=== PATIENT | female | born 1975 | race Caucasian/White ===

== ENCOUNTER → 2017-05-06 13:35 | Outpatient (CLI) | payer OTHER, SELFPAY ==
--- NOTE | 2017-05-06 13:43 | XR_ITS ---
EXAM: XR lumbar spine min 4V HISTORY: Low back pain ITS.REASON: LBP ORDERING PHYSICIAN: Marina Broderick PATIENT AGE: 41 years COMPARISON: None FINDINGS: Minimal lower lumbar curvature convex left. No fracture or dislocation. No lytic or blastic change. Degenerative disc disease is present at L4-L5. There is normal alignment. IMPRESSION: Degenerative disc disease L4-L5 with mild lower lumbar scoliosis convex left
== END ==
PROVIDERS: PCP Family Medicine; Visit Provider Nurse Practitioner Family
DX: M54.5 Low back pain (principal)
CPT/HCPCS: 72110

== ENCOUNTER → 2017-08-30 11:44 | Outpatient (POV) | payer OTHER, SELFPAY | PROVIDERS: Visit Provider Nurse Practitioner Acute Care | DX: Z00.00 Encounter for general adult medical examination without abnormal findings (principal) ==

== ENCOUNTER → 2018-03-07 09:47 | Outpatient (POV) | payer SELFPAY | PROVIDERS: Visit Provider Nurse Practitioner Acute Care | DX: Z00.00 Encounter for general adult medical examination without abnormal findings (principal) ==

== ENCOUNTER → 2018-06-06 08:56 | Outpatient (POV) | payer OTHER, SELFPAY | PROVIDERS: Visit Provider Nurse Practitioner Acute Care | DX: Z00.00 Encounter for general adult medical examination without abnormal findings (principal) ==

== ENCOUNTER → 2019-01-02 08:23 | Outpatient (POV) | payer OTHER, SELFPAY | PROVIDERS: PCP Family Medicine; Visit Provider Nurse Practitioner Family | DX: Z00.00 Encounter for general adult medical examination without abnormal findings (principal) ==

== ENCOUNTER → 2020-05-17 09:05 | Outpatient (CLI) | payer OTHER, SELFPAY ==
--- NOTE | 2020-05-17 09:11 | XR_ITS ---
PROCEDURE: XR KNEE LT 4V CLINICAL INDICATION: LT knee pain Medial knee. COMPARISON: No exams were available for comparison FINDINGS: There is mild lateral patellar subluxation. No acute fracture or dislocation. Small suprapatellar effusion is noted. The joint spaces are well-preserved. No significant degenerative/arthritic changes. No erosive changes evident. Other findings:None. IMPRESSION: Mild lateral patellar subluxation. This could be seen with medial patellofemoral ligament injury especially with history of dislocation. MRI may confirm if clinically desired. Dictated by: Rolo Weaver MD 05/17/2020 11:39 Rolo Weaver MD in [place] 05/17/2020 11:39
== END ==
PROVIDERS: PCP Family Medicine; Visit Provider Orthopaedic Surgery
DX: M25.562 Pain in left knee (principal)
CPT/HCPCS: 73564

== ENCOUNTER 2021-02-14 21:22 | Emergency (ER) | payer OTHER, SELFPAY ==
[2021-02-14 21:22] VITALS: BP 139/88; PULSE 78; RESP 17; TEMP 36.6; O2SAT 100; BMI 22.2
--- NOTE | 2021-02-14 21:27 | XR_ITS ---
PROCEDURE INFORMATION: Exam: XR Chest Exam date and time: 02/14/2021 9:27 PM Age: 45 years old Clinical indication: Pain; Chest pressure; Additional info: Chest pain TECHNIQUE: Imaging protocol: XR of the chest. Views: 1 view. COMPARISON: No relevant prior studies available. FINDINGS: Lungs: No consolidation. Pleural spaces: No significant pleural effusion. No pneumothorax. Heart/Mediastinum: No cardiomegaly. Bones/joints: No displaced fracture. Soft tissues: Unremarkable. IMPRESSION: No definite acute cardiopulmonary disease.
--- NOTE | 2021-02-14 21:27 | ECG_ITS ---
APPROVED REPORT Exam: Resting ECG HR:75 bpm ECG Measurements Heart Rate 75 AXES ME 152 P 83 QRSd 76 QRS 64 QT 380 T 77 QTc 424 Conclusion Normal sinus rhythm Possible Left atrial enlargement Borderline ECG Electronically signed by : Zeferino Manning MD 02/15/2021 09:10:53
[2021-02-14 21:32] LABS: Basophils # 0.1 K/mm3 (0-0.2); Basophils % 0.7 % (0.1-2.0); Eosinophils # 0.1 K/mm3 (0.0-0.4); Eosinophils % 0.9 % (0.1-12.0); Hematocrit 46.5 % (37.0-47.0); Lymphocytes # 2.8 K/mm3 (0.7-4.5); Lymphocytes % 21.9 % (10-50); Mean Corpuscular HGB Conc 32.3 g/dL (31.8-35.4); Mean Corpuscular Hemoglobin 30.3 pg (27.0-31.2); Mean Corpuscular Volume 93.8 fl (81-99); Monocytes # 0.5 K/mm3 (0.1-1.0); Neutrophils # 9.4 K/mm3 (1.8-7.8); Neutrophils % 72.4 % (37.0-80.0); Platelet Count 286 K/mm3 (142-424); Red Blood Count 4.95 M/mm3 (4.20-5.40); Red Cell Distribution Width 13.3 % (11.5-17.5)
--- NOTE | 2021-02-14 21:37 | HMH.EDGENADL ---
ED Disposition Clinical Impression: Epigastric pain, Atypical chest pain Disposition: Home, Self-Care Condition on Discharge: Good Instructions: DI for Atypical Chest Pain, DI for Epigastric Pain Additional Instructions: You have been evaluated for epigastric pain, atypical chest pain. Work-up tonight is reassuring. Please continue taking all medications as prescribed including omeprazole. Follow-up with your primary care doctor. Follow-up with cardiology in clinic. Return to the emergency department for any new or worsening symptoms. Referrals: Zeferino Dyer MD [Primary Care Provider] - Get Rollins MD [Staff Physician] - Time of Disposition: 00:27 - Critical Care Critical Care Time: No Attestation: On 02/14/21, the high probability of a clinically significant, sudden or life threatening deterioration of the following system(s) required my full and direct attention, intervention and personal management. The time I documented below is in addition to time spent performing reported procedures but includes the following listed in this critical care notation. Medical Decision Making - Medical Records Medical records reviewed: Yes: I reviewed the patient's medical records. - Venu Inquiry Pt receiving controlled substance: No Vital Signs: 02/14/21 21:22 02/15/21 00:31 Temperature 97.9 F 98.2 F Temperature Source Oral Oral Pulse Rate 77 Pulse Rate [Apical] 78 Respiratory Rate 17 16 Blood Pressure 139/88 Blood Pressure [Right Radial Artery] 139/88 Blood Pressure Mean [Right Radial Artery] 105 Blood Pressure Source [Right Radial Artery] Automatic Cuff Blood Pressure Position [Right Radial Artery] Sitting 02 Sat by Pulse Oximetry 100 Oxygen Delivery Method Room Air Room Air - Lab Data Lab Results 02/14/21 21:23: WBC 13.0 H, RBC 4.95, Hgb 15.0, Hct 46.5, MCV 93.8, MCH 30.3, MCHC 32.3, RDW 13.3, Plt Count 286, MPV 8.0, Neut % (Auto) 72.4, Lymph % (Auto) 21.9, [place] % (Auto) 4.0, Eos % (Auto) 0.9, Baso % (Auto) 0.7, Neut # (Auto) 9.4 H, Lymph # (Auto) 2.8, [place] # (Auto) 0.5, Eos # (Auto) 0.1, Baso # (Auto) 0.1 02/14/21 21:23: Sodium 141, Potassium 3.9, Chloride 104, Carbon Dioxide 30, Anion Gap 10.9, BUN 10, Creatinine 0.60, Estimated GFR 108, Est GFR ( Amer) 130, Glucose 95, Calcium 9.3, Total Bilirubin 0.3, AST 24, ALT 14, Alkaline Phosphatase 57, Troponin I < 0.01, Total Protein 7.5, Albumin 4.5, Globulin 3.0, Albumin/Globulin Ratio 1.5 02/14/21 23:38: Troponin I < 0.01 Result diagrams: 02/14/21 21:23 02/14/21 21:23 Orders (Tests/Meds): ED MEDICATIONS Discontinued Medications Generic Name Dose Route Start Last Admin Trade Name Tinoq PRN Reason Stop Dose Admin Aspirin 325 mg 02/14/21 21:36 02/14/21 21:36 Aspirin 325mg Tablet PO 02/14/21 21:37 325 mg ONCE ONE Administration Belladonna Alkaloids 60 ml 02/14/21 21:43 02/14/21 21:43 Gi Cocktail 60ml Udc PO 02/14/21 21:44 60 ml ONCE ONE Administration - SONIA Score for Non-Stemi Age of Patient: 40-49 years old Heart Rate: 70-89 bpm Systolic Blood Pressure: 120-139 mmhg Serum Creatinine: 0.40-0.79 mg/dl CHF Killip Class: I-No CHF Other Risk Factors: None Non-Stemi Risk Score: 72 Medical Decision Narrative: In summary this is a 45-year-old female with history of gastric reflux presenting to the emergency department with chest pain. Patient clinically stable on arrival. Vital signs within normal limits. Her description of pain is quite anterior and intermittent. Concern for atypical ACS, chest wall pain, peptic ulcer or gastric ulcer. Her pain description is not pleuritic in nature. No associated shortness of breath. Doubt pulmonary embolism. She is negative by PERC rule. Also doubt acute aortic dissection. Obtain CBC, CMP, chest x-ray, EKG, troponin profile. Patient given 325 chewable aspirin. EKG shows sinus rhythm without evidence of ischemia or arrhythmia. Initial laboratory results
[2021-02-14 21:41] LABS: Alanine Aminotransferase 14 U/L (12-78); Albumin Level 4.5 g/dl (3.5-5.0); Albumin/Globulin Ratio 1.5 (1.1-1.8); Alkaline Phosphatase 57 U/L (38-126); Anion Gap 10.9 mEq/L (5-15); Aspartate Amino Transferase 24 U/L (14-36); Bilirubin,Total 0.3 mg/dl (0.2-1.3); Blood Urea Nitrogen 10 mg/dl (7-17); Calcium 9.3 mg/dl (8.4-10.2); Carbon Dioxide 30 mmol/L (22.0-30.0); Chloride 104 mmol/L (98-107); Estimated Glomerular Filt Rate 108 ml/min (>60); GFR (African American) 130 ML/MIN (>60); Glucose 95 mg/dl (74-100); Potassium 3.9 mmoL/L (3.5-5.1); Sodium 141 mmol/L (136-145); Total Protein,Serum 7.5 g/dl (6.3-8.2)
[2021-02-14 21:55] LABS: Troponin I < 0.01 ng/ml (0.00-0.034)
--- NOTE | 2021-02-14 22:33 | PC.NURSE ---
Pt states GI cocktail has relieved pain
[2021-02-15 00:26] LABS: Troponin I < 0.01 ng/ml (0.00-0.034)
[2021-02-15 00:31] VITALS: BP 139/88; PULSE 77; RESP 16; TEMP 36.8; O2SAT 98
== END 2021-02-15 00:35 | disposition home or self-care (01) ==
PROVIDERS: Emergency Provider Emergency Medicine; PCP Family Medicine
DX: R10.13 Epigastric pain (principal); R07.89 Other chest pain; K21.9 Gastro-esophageal reflux disease without esophagitis; F17.210 Nicotine dependence, cigarettes, uncomplicated
CPT/HCPCS: 71045; 80053; 84484; 85025; 93005; 99282

== ENCOUNTER → 2021-03-31 11:32 | Outpatient (CLI) | payer OTHER, SELFPAY ==
--- NOTE | 2021-03-31 11:42 | XR_ITS ---
PROCEDURE: XR THORACIC SPINE 3V CLINICAL INDICATION: ACUTE RT-SIDED THORACIC BACK PAIN COMPARISON: No exams were available for comparison FINDINGS: Normal alignment. No acute fracture or dislocation. No lytic or blastic change Other findings:None. IMPRESSION: No acute findings. Dictated by: Rolo Weaver MD 03/31/2021 13:50 Rolo Weaver MD in [place] 03/31/2021 13:50
== END ==
PROVIDERS: PCP Family Medicine; Visit Provider Nurse Practitioner Family
DX: M54.6 Pain in thoracic spine (principal)
CPT/HCPCS: 72072

== ENCOUNTER → 2021-07-14 09:13 | Outpatient (CLI) | payer OTHER, SELFPAY ==
--- NOTE | 2021-07-14 09:20 | XR_ITS ---
FINAL REPORT CLINICAL HISTORY: H/O NICOTINE DEPENDENCE - back pain COMPARISON: 02/15/2021 FINDINGS: 2 views of the chest were obtained . The heart is normal in size. The mediastinum is within normal limits. The lungs are clear. There is no pneumothorax. Osseous structures are unremarkable. IMPRESSION: No acute cardiopulmonary process. Reviewed, Interpreted and Dictated by Karan Song MD Transcribed by Jael Boyle Authenticated by Karan Song MD on 07/14/2021 12:14:13 PM [facility]
== END ==
PROVIDERS: PCP Family Medicine; Visit Provider Family Medicine
DX: Z87.891 Personal history of nicotine dependence (principal)
CPT/HCPCS: 71046

== ENCOUNTER → 2021-10-20 07:40 | Outpatient (CLI) | payer OTHER, SELFPAY ==
[2021-10-20 08:10] LABS: Basophils # 0.1 K/mm3 (0-0.2); Basophils % 1.5 % (0.1-2.0); Eosinophils # 0.1 K/mm3 (0.0-0.4); Eosinophils % 1.5 % (0.1-12.0); Hematocrit 47.7 % (37.0-47.0); Hemoglobin 14.7 g/dL (12.2-16.2); Lymphocytes # 1.7 K/mm3 (0.7-4.5); Lymphocytes % 21.1 % (10-50); Mean Corpuscular HGB Conc 30.8 g/dL (31.8-35.4); Mean Corpuscular Hemoglobin 29.2 pg (27.0-31.2); Mean Corpuscular Volume 94.8 fl (81-99); Mean Platelet Volume 8.2 fl (7.4-10.4); Monocytes # 0.4 K/mm3 (0.1-1.0); Monocytes % 4.8 % (1.7-9.3); Neutrophils # 5.7 K/mm3 (1.8-7.8); Neutrophils % 71.2 % (37.0-80.0); Platelet Count 259 K/mm3 (142-424); Red Blood Count 5.03 M/mm3 (4.20-5.40); Red Cell Distribution Width 13.1 % (11.5-17.5)
[2021-10-20 08:27] LABS: Chol/HDL Ratio 3.1 (1-3.5); Cholesterol 156 mg/dl (140-200); HDL Cholesterol 51 mg/dl (40-60); Triglycerides 138 mg/dl (30-150); VLDL Cholesterol 28 mg/dL (0-40)
[2021-10-20 08:33] LABS: C-Reactive Protein 0.8 mg/L (0-4)
[2021-10-20 08:34] LABS: Erythrocyte Sedimentation Rate 13 mm/hr (0-20)
[2021-10-20 08:38] LABS: Direct LDL Cholesterol 65.29 mg/dL (100-129)
[2021-10-20 08:58] LABS: Thyroid Stimulating Hormone 0.58 uIU/mL (0.465-4.68)
[2021-10-21 08:14] LABS: Thyroid Peroxidase Antibodies <8 IU/mL (0-34)
== END ==
PROVIDERS: PCP Family Medicine; Visit Provider Family Medicine
DX: R59.1 Generalized enlarged lymph nodes (principal)
CPT/HCPCS: 36415; 80061; 84443; 85025; 85651; 86140; 86376

== ENCOUNTER → 2021-12-18 17:28 | Outpatient (CLI) | payer OTHER, SELFPAY ==
--- NOTE | 2021-12-18 17:37 | XR_ITS ---
PROCEDURE INFORMATION: Exam: XR Left Shoulder Exam date and time: 12/18/2021 5:30 PM Age: 46 years old Clinical indication: Pain; Shoulder; Left; Additional info: Left shoulder pain TECHNIQUE: Imaging protocol: Radiologic exam of the Left shoulder. Views: 2 or more views. COMPARISON: CR XR CHEST 2V 07/14/2021 9:42 AM FINDINGS: Bones/joints: Faint 4 mm calcification projecting in the distribution of the distal rotator cuff tendons in the region of the conjoined tendon on the externally rotated view consistent with mild calcific tendinosis. No fractures. Glenohumeral alignment is normal. A.C. joint alignment is normal. No blastic or lytic lesions. Adjacent ribs are intact. Lungs: Visualized lung parenchyma is unremarkable. Pleural space: No visible pleural effusion or pneumothorax. Soft tissues: No gross soft tissue abnormalities. IMPRESSION: Mild calcification in the distal rotator cuff tendon distribution suggesting mild calcific tendinosis.
== END ==
PROVIDERS: PCP Family Medicine; Visit Provider Family Medicine
DX: M25.512 Pain in left shoulder (principal); G89.29 Other chronic pain
CPT/HCPCS: 73030

== ENCOUNTER 2024-05-10 08:53 | Outpatient (POV) | payer OTHER, SELFPAY ==
--- NOTE | 2024-05-10 09:08 | A.OFFVIS_ITS ---
HPI Data of Consult Patient: new to practice Consult date: 05/10/24 Requesting Physician: Quin Braden APRN Primary Care Provider: Zeferino Dyer MD Consult Narrative Reason for consult: Low back pain History of present illness: Ms. Lorenzo is a 48 year old female who presents today as a new patient. She is a referral from Dr. Dyer's office. She rates her pain today a 1 out of 10 while seated however does state the pain will go to at least a 5 or more with increased activity.Patient states her pain is all chronic and is been going on for 30+ years and remains in her low back. Patient denies any specific injury or trauma that initially started this and believes it was more wear and tear. Patient states the pain is all in her low back that is worse with certain activities like lifting or bending. She states that she has significant difficulty pulling her legs up towards her knees. Patient states this is a constant sharp sensation that does interfere with her ability perform activities of daily living such as cooking and cleaning. Patient states that she has not ever had any surgery or injections and that the only really thing that seemed to improve her pain were oral steroids that she has gotten from on occasion. Patient states she has tried Tylenol and ibuprofen along with heat and ice and topicals with minimal relief. Patient has had physical therapy with no additional improvement and has continued at home stretching exercise for longer than 12 weeks that was physician guided with no additional changes. Patient does state that she has also had chiropractor therapy in the past and this did help some. Patient is interested in any help we may be able to provide.She is not on any scheduled medications. Her Venu has been reviewed and is appropriate. CC: Quin Braden APRN [facility] Disclaimer: The information contained in this section may have been updated after the patient was seen, as this information can be updated by other users. Medical History (Updated 05/10/24 @ 11:35 by Quin Braden APRN) GERD (gastroesophageal reflux disease) Surgical History (Updated 05/10/24 @ 10:02 by Giovanna Robert RN) No significant past surgical history Family History (Updated 05/10/24 @ 10:02 by Giovanna Robert RN) Other Unknown family medical history Social History (Updated 05/10/24 @ 10:04 by Giovanna Robert RN) Smoking Status: Current every day smoker tobacco type: cigarettes packs per day: 1 alcohol intake: never current occupational status: employed Travel in the last 8 weeks: None caffeine: Yes Contact w/someone who lives/traveled outside [place] past 30 days?: No Exposure to someone with infectious disease in past 14 days?: No Do you have a fever (greater than 100.4 F or 38 C)?: No Have you tested positive for COVID-19: No Exposed to someone with COVID-19 in past 14 days?: No Do you have a sore throat?: No Do you have a cough?: No Do you have any weakness?: No Are you experiencing any nausea/vomitting?: No Do you have any diarrhea?: No Are you experiencing any unusual bleeding?: No Do you have any muscle aches/pain?: No Do you have any abdominal pain?: No Are you experiencing loss of taste or smell?: No Review of Systems Review of Systems Review of systems:: pertinent systems reviewed and negative unless documented below Review of systems (narrative): Review of Systems: General: No recent weight changes, no fever, no sleep disturbances Respiratory: No cough, no shortness of air, no recurring pulmonary infections Cardiovascular/peripheral vascular: No chest pain, no palpitations, no edema, no shortness of breath Gastrointestinal: No new onset incontinence, normal bowel movements reported Genitourinary: No new onset incontinence Musculoskeletal: Low back pain Psychiatric: [Normal mood/affect] Neurological: [Denies weakness in extremities], [denies balance issues] Meds Home Medications and Allergies Home Medications ?Medication ?Instructions ?Recorded ?Confirmed ?Type omeprazole 20 mg capsule,delayed 20 mg PO DAILY stomach 04/12/18 05/10/24 History release duloxetine 30 mg capsule,delayed 30 mg PO DAILY MOOD 05/10/24 05/10/24 History release New Prescriptions to Start Prescriptions: Allergies Allergy/AdvReac Type Severity Reaction Status Date / Time No Known Drug Allergies Allergy Unknown Verified 05/17/20 09:43 (NKDA) Objective Narrative: Physical Exam: General: Alert and oriented x3, no acute distress, pleasant and cooperative Lungs: Respirations even and unlabored, symmetrical chest expansion Eyes: PERRL Musculoskeletal: Flexion and extension of lumbar [spine] somewhat guarded secondary to pain, positive Kemps test Neurological: Speech clear, no gross sensory deficit Additional findings Additional findings: X-ray lumbar spine 12/14/2022 Findings: There were 5 typical lumbar spine vertebral bodies in anatomic alignment. No evidence of instability. No evidence of fracture or compression deformity. Mild spondylosis and facet arthropathy of the lower lumbar spine. Soft tissues appear within normal limits. No focal lesions identified. Impression: Mild multifactorial degenerative change without acute process identified Assessment and Plan *Assessment and plan (1) Degenerative disc disease, lumbar: Status: Acute Category: Medical Code(s): M51.369 - Other intervertebral disc degeneration, lumbar region without mention of lumbar back pain or lower extremity pain (2) Lumbar facet arthropathy: Status: Acute Category: Medical Code(s): M47.816 - Spondylosis without myelopathy or radiculopathy, lumbar region (3) Lumbar spondylosis: Status: Acute Category: Medical Code(s): M47.816 - Spondylosis without myelopathy or radiculopathy, lumbar region Plan Patient is experiencing chronic pain throughout her low back with limited range of motion. Patient did have a positive Kemps test. I did discuss with the patient that I do believe she would benefit from a lumbar medial branch block bilaterally. Risk and benefits were discussed with the patient and she would like to proceed forward with this plan of care. Patient has tried and failed conservative therapy including oral medications, heat and ice, topicals, physical therapy, chiropractor therapy and continued at home stretching exercise for longer than 12 weeks that was physician guided. Patient was counseled if she does have significant relief with her first diagnostic lumbar medial branch block that we will plan on repeating this injection with the plan to proceed forward with a lumbar RFA in the future if she gets significant relief. Patient agrees with this. I will order the patient a compounded cream. Patient will be scheduled for her first diagnostic lumbar medial branch block bilaterally L4- L5 and L5-S1 under fluoroscopy. Patient has been instructed to contact the clinic with any concerns before the next appointment. Dr. June has reviewed this note and agrees with this plan of care. This note was dictated using voice recognition software and make contain errors or omissions. All injections are used with Lidocaine, Bupivacaine and Depo Medrol. Occasionally urine drug screen is needed to verify patient's compliance with our office pain contract. This is ordered based off specific treatments related to chronic pain with the potential to abuse certain medications.
[2024-05-10 09:58] VITALS: BP 122/85; PULSE 68; RESP 18; O2SAT 95; BMI 25.8
== END 2024-05-10 23:59 | disposition home or self-care (01) ==
LOC: SC.PAIN 08:53
PROVIDERS: PCP Family Medicine; Visit Provider Nurse Practitioner Family
DX: M51.360 Other intervertebral disc degeneration, lumbar region with discogenic back pain only (principal); M47.816 Spondylosis without myelopathy or radiculopathy, lumbar region; Z73.89 Other problems related to life management difficulty; F17.210 Nicotine dependence, cigarettes, uncomplicated
CPT/HCPCS: 99202; G0463

== ENCOUNTER 2024-05-23 09:25 | Day surgery (SDC) | payer OTHER, SELFPAY ==
[2024-05-23 09:47] VITALS: BP 113/62; PULSE 60; RESP 16; TEMP 36.6; O2SAT 96; BMI 25.8
[2024-05-23 10:11] VITALS: BP 129/62; PULSE 69; RESP 16; TEMP 36.6; O2SAT 100
--- NOTE | 2024-05-23 10:11 | P.PCN_ITS ---
Procedure Date: 05/23/24 Time: 10:00 Anesthesiologist:: Manuel Pink CRNA Complications:: None Pre-procedure Diagnosis:: Degenerative disc lumbar spine multilevels. Lumbar radiculopathy lumbar spondylosis. Multilevel lumbar facet arthropathy. Post-procedure Diagnosis:: Same. Indications for Procedure:: Patient is a very pleasant 48-year-old female comes our clinic today for ROUND ONE of lumbar medial branch blocks/facet injections at the bilateral L4-5, L5-S1 level. Patient describes low lumbar back pain as constant, dull, aching. Patient also reports bilateral hip radicular symptoms at times. She reports having difficulty standing for any length of time due to lumbar back pain. She reports difficulty with lumbar flexion, extension, left and right rotation. She rates her pain 7/10. Procedure Details:: Informed consent was obtained and the risk and benefits of the procedure was explained to the patient. Patient was taken to the procedure room where noninvasive monitors were placed, including noninvasive blood pressure cuff as well as pulse oximeter. The area over the lumbar spine was cleansed using chlorhexidine as a cleansing solution. I anesthetized the skin and subcutaneous tissues with 1% Lidocaine. I placed 22-gauge spinal needles into the facet joint/ medial branches of L4-5, L5-S1 bilaterally. Needle placement was confirmed with fluoroscopy. After confirmation of needle placement, each site was injected with 1 mL of 1% lidocaine and 0.25 % Marcaine and 10 mg of Depo- Medrol. A total of 80 mg of depo medrol was used for bilateral medial branch blocks of L4-L5, and L5-S1] bilaterally. Patient tolerated the procedure without difficulty. There were no complications. Plan and Disposition:: Patient was discharged without incident.
[2024-05-23 12:54] VITALS: BP 123/64; PULSE 65; RESP 18; O2SAT 95
[2024-05-23] MEDS: LIDOCAINE 1% 5ML PF VIAL 5 ML (12:54)
[2024-05-23] MEDS: methylPREDNISolone ACETATE 80MG/ML VIAL 80 MG (12:54)
[2024-05-23] MEDS: BUPIVACAINE 0.25% 10ML INJ 25 MG IJ (12:54)
[2024-05-23 12:56] VITALS: BP 123/64; PULSE 65; RESP 18; O2SAT 95
== END 2024-05-23 10:11 | disposition home or self-care (01) ==
PROVIDERS: PCP Family Medicine; Visit Provider Nurse Anesthetist, Certified Registered
DX: M47.816 Spondylosis without myelopathy or radiculopathy, lumbar region (principal); M51.369 Other intervertebral disc degeneration, lumbar region without mention of lumbar back pain or lower extremity pain
CPT/HCPCS: 64493; 64494; J1010

== ENCOUNTER 2024-06-05 09:44 | Outpatient (POV) | payer OTHER, SELFPAY ==
--- NOTE | 2024-06-05 10:00 | EXP.PAIN.SOA ---
[facility] Disclaimer: The information contained in this section may have been updated after the patient was seen, as this information can be updated by other users. Medical History GERD (gastroesophageal reflux disease) Surgical History No significant past surgical history Family History Other Unknown family medical history Social History Smoking Status: Current every day smoker tobacco type: cigarettes packs per day: 1 alcohol intake: never current occupational status: other Travel in the last 8 weeks: None caffeine: Yes PM Subjective & Objective Subjective Subjective:: Patient is a pleasant 48-year-old female who presents today for follow-up of her first lumbar medial branch block bilaterally L4-L5 and L5-S1 on 05/23/2024. Today she rates her pain a 7 out of 10. She denies any new trauma or injury. She does states she had approximately 90% improvements for about a week and a half. Patient states that she felt amazing during that time and was able to do so much more due to the improved function and decreased pain. She does state however after Wednesday of last week the pain did come back and she is basically back at her baseline today. Patient does state it is a constant aching, throbbing sensation throughout her back that does interfere with her ability perform activities of daily living such as cooking and cleaning. Patient does state that she really would like to get scheduled for the repeat injection that we talked about last visit. Patient was ordered a compounded cream at her last appointment however states that she did not notice significant improvement. Her Venu has been reviewed and is appropriate. Review of Systems: General: No recent weight changes, no fever, no sleep disturbances Respiratory: No cough, no shortness of air, no recurring pulmonary infections Cardiovascular/peripheral vascular: No chest pain, no palpitations, no edema, no shortness of breath Gastrointestinal: No new onset incontinence, normal bowel movements reported Genitourinary: No new onset incontinence Musculoskeletal: Low back pain Psychiatric: [Normal mood/affect] Neurological: [Denies weakness in extremities], [denies balance issues] Pain at rest (0-10 scale): 7 Objective Objective:: Physical Exam: General: Alert and oriented x3, no acute distress, pleasant and cooperative Lungs: Respirations even and unlabored, symmetrical chest expansion Eyes: PERRL Musculoskeletal: Flexion and extension of lumbar [spine] somewhat guarded secondary to pain, [antalgic gait noted] positive Kemps test Neurological: Speech clear, no gross sensory deficit Has patient had previous pain injection?: Yes Percent improvement in pain since last injection: 90% Conservative treatment options previously tried: Home exercise plan Length of treatment: Longer than 12 weeks Meds Home Medications and Allergies Home Medications ?Medication ?Instructions ?Recorded ?Confirmed ?Type omeprazole 20 mg capsule,delayed 20 mg PO DAILY stomach 04/12/18 05/23/24 History release duloxetine 30 mg capsule,delayed 30 mg PO DAILY MOOD 05/10/24 05/23/24 History release New Prescriptions to Start Prescriptions: Allergies Allergy/AdvReac Type Severity Reaction Status Date / Time No Known Drug Allergies Allergy Unknown unkn Verified 05/23/24 09:50 (NKDA) Assessment and Plan *Assessment and plan (1) Lumbar spondylosis: Status: Acute Category: Medical Code(s): M47.816 - Spondylosis without myelopathy or radiculopathy, lumbar region (2) Lumbar facet arthropathy: Status: Acute Category: Medical Code(s): M47.816 - Spondylosis without myelopathy or radiculopathy, lumbar region (3) Degenerative disc disease, lumbar: Status: Acute Category: Medical Code(s): M51.369 - Other intervertebral disc degeneration, lumbar region without mention of lumbar back pain or lower extremity pain Plan Patient is experiencing worsening pain in her low back with limited range of motion. Patient did have a positive Kemps test and did have a successful first lumbar medial branch block with 90% improvement lasting a week and a half. I did review over with the patient the risk and benefits of repeat injection and they would like to proceed forward with this plan of care. Patient was counseled that if she again gets significant relief with her second lumbar medial branch block we will proceed forward with the lumbar RFA at a later date. Patient has continued conservative treatment including physical therapy, chiropractor therapy and continued at home stretching and exercise for longer than 12 weeks that was physician guided in between injections. Patient will be scheduled for her second lumbar medial branch block bilaterally L4-L5 and L5-S1 under fluoroscopy. I will also send in a 2-week dose of baclofen 5 mg 3 times daily. Patient has been instructed to contact the clinic with any concerns before the next appointment. Dr. June has reviewed this note and agrees with this plan of care. This note was dictated using voice recognition software and make contain errors or omissions. All injections are used with Lidocaine, Bupivacaine and Depo Medrol. Occasionally urine drug screen is needed to verify patient's compliance with our office pain contract. This is ordered based off specific treatments related to chronic pain with the potential to abuse certain medications.
[2024-06-05 10:03] VITALS: BP 115/69; PULSE 90; RESP 14; O2SAT 97; BMI 25.8
== END 2024-06-05 23:59 | disposition home or self-care (01) ==
PROVIDERS: PCP Family Medicine; Visit Provider Nurse Practitioner Family
DX: M47.816 Spondylosis without myelopathy or radiculopathy, lumbar region (principal); M51.369 Other intervertebral disc degeneration, lumbar region without mention of lumbar back pain or lower extremity pain; F17.210 Nicotine dependence, cigarettes, uncomplicated; Z73.89 Other problems related to life management difficulty
CPT/HCPCS: 99212; G0463

== ENCOUNTER 2024-06-20 14:34 | Day surgery (SDC) | payer OTHER, SELFPAY ==
[2024-06-20 14:38] VITALS: BP 141/76; PULSE 90; RESP 16; TEMP 36.6; O2SAT 95; BMI 25.8
--- NOTE | 2024-06-20 15:11 | P.PCN_ITS ---
Procedure Date: 06/20/24 Time: 15:00 Anesthesiologist:: Manuel Pink CRNA Complications:: None Pre-procedure Diagnosis:: Degenerative disc lumbar spine multilevels. Lumbar radiculopathy. Lumbar spondylosis. Multilevel lumbar facet arthropathy. Post-procedure Diagnosis:: Same. Indications for Procedure:: Patient is a pleasant 48-year-old female who comes our clinic today for ROUND TWO of lumbar medial branch blocks/facet injection bilateral L4-5, L5-S1. Patient describes low lumbar back pain as constant, dull, aching. She reports having difficulty with lumbar flexion, extension, left and right rotation. She rates her pain 7/10. Procedure Details:: Informed consent was obtained and the risk and benefits of the procedure was explained to the patient. Patient was taken to the procedure room where noninvasive monitors were placed, including noninvasive blood pressure cuff as well as pulse oximeter. The area over the lumbar spine was cleansed using chlorhexidine as a cleansing solution. I anesthetized the skin and subcutaneous tissues with 1% Lidocaine. I placed 22-gauge spinal needles into the facet joint/ medial branches of L4-L5, and L5-S1] bilaterally. Needle placement was confirmed with fluoroscopy. After confirmation of needle placement, each site was injected with 1 mL of 1% lidocaine and 0.25 % Marcaine and 10 mg of Depo- Medrol. A total of 80 mg of depo medrol was used for bilateral medial branch blocks of L4-L5, and L5-S1] bilaterally. Patient tolerated the procedure without difficulty. There were no complications. Plan and Disposition:: Patient was discharged without incident.
[2024-06-20 15:13] VITALS: BP 147/87; PULSE 74; RESP 18; O2SAT 98
[2024-06-20 15:22] VITALS: BP 152/90; PULSE 79; RESP 18; O2SAT 97
[2024-06-20] MEDS: LIDOCAINE 1% 5ML PF VIAL 5 ML (15:22)
[2024-06-20] MEDS: BUPIVACAINE 0.25% 10ML INJ 25 MG IJ (15:22)
[2024-06-20 15:24] VITALS: BP 152/90; PULSE 90; RESP 18; O2SAT 94
== END 2024-06-20 15:13 | disposition home or self-care (01) ==
PROVIDERS: PCP Family Medicine; Visit Provider Nurse Anesthetist, Certified Registered
DX: M47.816 Spondylosis without myelopathy or radiculopathy, lumbar region (principal); M51.369 Other intervertebral disc degeneration, lumbar region without mention of lumbar back pain or lower extremity pain
CPT/HCPCS: 64493; 64494; J1010

== ENCOUNTER 2024-07-03 08:35 | Outpatient (POV) | payer OTHER, SELFPAY ==
--- NOTE | 2024-07-03 08:48 | A.OFFVIS_ITS ---
[facility] Disclaimer: The information contained in this section may have been updated after the patient was seen, as this information can be updated by other users. Medical History GERD (gastroesophageal reflux disease) Surgical History No significant past surgical history Family History Other Unknown family medical history Social History Smoking Status: Current every day smoker tobacco type: cigarettes packs per day: 1 alcohol intake: never current occupational status: other Travel in the last 8 weeks: None caffeine: Yes PM Subjective & Objective Subjective Subjective:: Patient is a pleasant 48-year-old female who presents today for her second lumbar medial branch block follow-up bilaterally L4-L5 and L5-S1 on 06/20/2024. Today she rates her pain a 2 out of 10. Patient states that she did get significant relief with her last lumbar medial branch block. She states the diarrhea she had 100% relief and rates it currently more about 70%. Patient had her first lumbar medial branch block on May 23 that did provide 90% improvement lasting a week and a half. Patient did have improved function with overall decreased pain. Patient states that she is definitely interested in proceeding forward with the lumbar RFA in the future. Patient at her last visit was also prescribed baclofen 5 mg 3 times daily, she states she really did not notice much improvement with this either. She has been prescribed compounded cream in the past however did not notice significant improvement. Her Venu has been reviewed and is appropriate. Review of Systems: General: No recent weight changes, no fever, no sleep disturbances Respiratory: No cough, no shortness of air, no recurring pulmonary infections Cardiovascular/peripheral vascular: No chest pain, no palpitations, no edema, no shortness of breath Gastrointestinal: No new onset incontinence, normal bowel movements reported Genitourinary: No new onset incontinence Musculoskeletal: Low back pain Psychiatric: [Normal mood/affect] Neurological: [Denies weakness in extremities], [denies balance issues] Pain at rest (0-10 scale): 2 Objective Objective:: Physical Exam: General: Alert and oriented x3, no acute distress, pleasant and cooperative Lungs: Respirations even and unlabored, symmetrical chest expansion Eyes: PERRL Musculoskeletal: Flexion and extension of lumbar [spine] somewhat guarded secondary to pain Neurological: Speech clear, no gross sensory deficit Has patient had previous pain injection?: Yes Percent improvement in pain since last injection: 100% first day Conservative treatment options previously tried: Home exercise plan Length of treatment: Longer than 12 weeks Meds Home Medications and Allergies Home Medications ?Medication ?Instructions ?Recorded ?Confirmed ?Type omeprazole 20 mg capsule,delayed 20 mg PO DAILY stomach 04/12/18 06/20/24 History release duloxetine 30 mg capsule,delayed 30 mg PO DAILY MOOD 05/10/24 06/20/24 History release baclofen 5 mg tablet 5 mg PO TID #42 tabs 06/05/24 06/20/24 Rx New Prescriptions to Start Prescriptions: Allergies Allergy/AdvReac Type Severity Reaction Status Date / Time No Known Drug Allergies Allergy Unknown unkn Verified 05/23/24 09:50 (NKDA) Assessment and Plan *Assessment and plan (1) Lumbar spondylosis: Status: Acute Category: Medical Code(s): M47.816 - Spondylosis without myelopathy or radiculopathy, lumbar region (2) Lumbar facet arthropathy: Status: Acute Category: Medical Code(s): M47.816 - Spondylosis without myelopathy or radiculopathy, lumbar region (3) Degenerative disc disease, lumbar: Status: Acute Category: Medical Code(s): M51.369 - Other intervertebral disc degeneration, lumbar region without mention of lumbar back pain or lower extremity pain Plan Patient has had significant improvement following her second diagnostic lumbar medial branch block and does not require any additional injection therapy at this time. Patient did have 100% relief the first day and is now writing 70% relief at the 2-week osiris. We will follow-up with her in 1 month for reevaluation of symptoms and plan of care. Patient was counseled once the pain starts to come back and be more consistent we will get her scheduled for her lumbar RFA. Patient agrees with this plan of care. Patient has been instructed to contact the clinic with any concerns before the next appointment. Dr. June has reviewed this note and agrees with this plan of care. This note was dictated using voice recognition software and make contain errors or omissions. All injections are used with Lidocaine, Bupivacaine and Depo Medrol. Occasionally urine drug screen is needed to verify patient's compliance with our office pain contract. This is ordered based off specific treatments related to chronic pain with the potential to abuse certain medications.
[2024-07-03 08:53] VITALS: BP 118/67; PULSE 73; RESP 14; O2SAT 97; BMI 25.8
== END 2024-07-03 23:59 | disposition home or self-care (01) ==
LOC: SC.PAIN 08:38
PROVIDERS: PCP Family Medicine; Visit Provider Nurse Practitioner Family
DX: M47.816 Spondylosis without myelopathy or radiculopathy, lumbar region (principal); M51.369 Other intervertebral disc degeneration, lumbar region without mention of lumbar back pain or lower extremity pain; F17.210 Nicotine dependence, cigarettes, uncomplicated
CPT/HCPCS: 99212; G0463

== ENCOUNTER 2024-08-02 08:49 | Outpatient (POV) | payer OTHER, SELFPAY ==
[2024-08-02 08:56] VITALS: BP 123/81; PULSE 88; RESP 16; O2SAT 97; BMI 25.8
--- NOTE | 2024-08-02 09:05 | EXP.PAIN.SOA ---
[facility] Disclaimer: The information contained in this section may have been updated after the patient was seen, as this information can be updated by other users. Medical History GERD (gastroesophageal reflux disease) Surgical History No significant past surgical history Family History Other Unknown family medical history Social History Smoking Status: Current every day smoker tobacco type: cigarettes packs per day: 1 alcohol intake: never current occupational status: other Travel in the last 8 weeks: None caffeine: Yes PM Subjective & Objective Subjective Subjective:: Patient is a pleasant 48-year-old female who presents today for worsening low back pain. Today she rates her pain a 3 out of 10 however she does state over the weekend that her pain was a 7 or 8 out of 10. Patient states that it may have been aggravated by the rain however she could barely move. Patient states it was all across to her back and did interfere with her ability perform activities of daily living such as cooking and cleaning. Patient does also state that she noticed even pain in her other joints including her fingers. Patient states that it did ease down a little bit today however she has not been up and doing a lot of activity at this point. Patient did have her first and second lumbar medial branch blocks that did provide significant relief with her last 1 providing 100% and then slowly decreasing down. Patient did get 90% with her first diagnostic block that did last a week and a half. Patient was prescribed compounded cream of baclofen 5 mg 3 times daily. Patient denies any side effects. Her Venu has been reviewed and is appropriate. Review of Systems: General: No recent weight changes, no fever, no sleep disturbances Respiratory: No cough, no shortness of air, no recurring pulmonary infections Cardiovascular/peripheral vascular: No chest pain, no palpitations, no edema, no shortness of breath Gastrointestinal: No new onset incontinence, normal bowel movements reported Genitourinary: No new onset incontinence Musculoskeletal: Low back pain Psychiatric: [Normal mood/affect] Neurological: [Denies weakness in extremities], [denies balance issues] Pain at rest (0-10 scale): 7 Objective Objective:: Physical Exam: General: Alert and oriented x3, no acute distress, pleasant and cooperative Lungs: Respirations even and unlabored, symmetrical chest expansion Eyes: PERRL Musculoskeletal: Flexion and extension of lumbar [spine] somewhat guarded secondary to pain, [antalgic gait noted] positive Kemps test Neurological: Speech clear, no gross sensory deficit Has patient had previous pain injection?: No Conservative treatment options previously tried: Home exercise plan Length of treatment: Longer than 12 weeks Meds Home Medications and Allergies Home Medications ?Medication ?Instructions ?Recorded ?Confirmed ?Type omeprazole 20 mg capsule,delayed 20 mg PO DAILY stomach 04/12/18 08/02/24 History release duloxetine 30 mg capsule,delayed 30 mg PO DAILY MOOD 05/10/24 08/02/24 History release baclofen 5 mg tablet 5 mg PO TID #42 tabs 06/05/24 08/02/24 Rx New Prescriptions to Start Prescriptions: Allergies Allergy/AdvReac Type Severity Reaction Status Date / Time No Known Drug Allergies Allergy Unknown unkn Verified 05/23/24 09:50 (NKDA) Assessment and Plan *Assessment and plan (1) Lumbar spondylosis: Status: Acute Category: Medical Code(s): M47.816 - Spondylosis without myelopathy or radiculopathy, lumbar region (2) Lumbar facet arthropathy: Status: Acute Category: Medical Code(s): M47.816 - Spondylosis without myelopathy or radiculopathy, lumbar region (3) Degenerative disc disease, lumbar: Status: Acute Category: Medical Code(s): M51.369 - Other intervertebral disc degeneration, lumbar region without mention of lumbar back pain or lower extremity pain Plan Patient is experiencing significant pain in her low back that is worse with bending, twisting or lifting. Patient did have limited range of motion of [his] lumbar spine with a positive Kemps test during today's visit. I did discuss with the patient that I do believe she would benefit from the lumbar RFA. Risk and benefits were discussed with patient and she would like to proceed forward with this plan of care. Patient has tried and failed conservative therapy including oral medications, heat and ice, topicals, at home stretching exercise for longer than 12 weeks. Patient has been experiencing chronic low back pain for longer than 6-month. Patient has had 2 diagnostic blocks with the first 1 providing 90% improvement lasting a week and a half and her second 1 providing immediate 100% relief lasting 1.5 months. Patient will be scheduled for her lumbar radiofrequency ablation bilaterally L4-L5 and L5-S1 under fluoroscopy. This will be a thermal nonpulsed burning at 80 ?C. Patient has been instructed to contact the clinic with any concerns before the next appointment. Dr. June has reviewed this note and agrees with this plan of care. This note was dictated using voice recognition software and make contain errors or omissions. All injections are used with Lidocaine, Bupivacaine and Depo Medrol. Occasionally urine drug screen is needed to verify patient's compliance with our office pain contract. This is ordered based off specific treatments related to chronic pain with the potential to abuse certain medications.
--- OUTSIDE RECORDS SUMMARY | 2024-08-03 21:51 | XMS_ITS | Data Portability ---
Author Organization [facility] Address [address] [place] [address] Assessment No assessment recorded. Plan of Treatment Reminders Order Date Submit Date Provider Last Modified By Organization Details Last Modified Time Details Appointments None record ed. Lab None record ed. Referral None record ed. Procedures None record ed. Surgeries None record ed. Imaging None record ed. Medication Orders None record ed. Patient TargetsNo targets recorded. Patient InstructionsNo instructions recorded. Reason for Referral None Reported. Problems Name Problem SNOMED Code Status Onset Date Resolution Date Notes Provider Name and Address Organization Details Recorded Time Sinusitis 86069473 Active 2014 Provider: Joce Bernard III atus: Active Not Available [facility] 6 08:10:58 Autoimmun e thyroidit is 76950331 Active 2014 From Automated Load;Provi robert: Sherman Bernard III;St atus: Active Not Available [facility] 6 08:10:58 Lesion of vocal cord Active 2014 From Automated Load;Provi robert: Shekhar Bernard IIISt atus: Active Not Available [facility] 6 08:10:58 Difficult y speaking Active 2014 From Automated Load;Provi robert: Shekhar Bernard IIISt atus: Active Not Available [facility] 6 08:10:58 Clinical finding Active 2014 From Automated Load;Provi robert: Shekhar Bernard IIISt atus: Active Not Available [facility] 6 08:10:58 Non-toxic multinodu lar goiter 74101521 Active 2014 From Automated Load;Provi robert: Shekhar Bernard III atus: Active Not Available [facility] 6 08:10:58 Glossitis 01993314 Active 2014 From Automated Load;Provi robert: Valentina Bernard IIIh; atus: Active Not Available [facility] 6 08:10:58 Headache disorder 501820082 Active 2014 From Automated Load;Provi robert: Sherman Bernard III; atus: Active Not Available [facility] 6 08:10:58 Sensorine ural hearing loss 00729173 Active 2014 Provider: Sherman Bernard III; atus: Active Not Available [facility] of [facility] 6 08:10:58 Nicotine dependenc e 18173496 Active 2014 Provider: Joce Bernard III atus: Active Not Available On license of [facility] 6 08:10:58 Problem Notes None recorded. Procedures Surgical History Date Name Laterality Status Provider Name and Address Organization Details Recorded Time DAK - Destruction BN Lesions completed Brennan Garcia [facility] 05/09/2024 11:13:33 Imaging Results None recorded. Procedure Notes None recorded. Medical Equipment None Reported. Allergies No known drug allergies Medications Name Sig Start Date Stop Date Status Note LastModified by Organization Details LastModified Time omeprazole 20 mg capsule,de layed release active Medicatio n Descripti on: omeprazol e; Route:ora l; refills:0 Not Available Not Available Not Available propranolo l active Not Available Not Available Not Available duloxetine active Not Available Not Av ailable Not Available Chantix 1 mg tablet As Directed active Duration: 30 days;Inst ructions: 1 tab po bid;Frequ ency: as direct.;M edication Descripti on: varenicli ne; Dosage:as directed; Route:ora l; refills:1 ; Quantity: 30 tabletno longer taking Not Available Not Available Not Available Vitals None Recorded Social History Question Answer Notes LastModified by Organizat ion Details LastModified Time Tobacco Smoking Status Current [facility] 05/09/2024 11:01:30 What Was The Date Of Your Most Recent Tobacco Screening? 05/09/2024 [email or web address] Information not available 05/09/2024 Sex: Unknown Functional Status None recorded. Mental Status None recorded. Family History Relationship Description Onset Age of this Age Resolved Age Notes LastModified by Organization Details LastModified Time Father No current problems or disability [email or web address] Not available 05/09 11:01:19 Mother No current problems or disability [email or web address] Not available 05/09 11:01:19 Medical History No medical history recorded. Gynecological HistoryNo gynecological history recorded. Obstetrics History GPAL:G 0 P 0 0 0 0 Past Encounters Encounter ID Performer Location Encounter Start Date Encounter Closed Date Diagnosis/Indication Diagnosis SNOMED-CT Code Diagnosis ICD10 Code Diagnosis Note [id number] BETTINA BAEZ [address] [place] [address] 05/09/2024 10:43:10 05/09/2024 11:42:39 Inflamed seborrheic keratosis 521085865 L82.0 R58 Benign ISK. Hx of bleeding.C ounseled on benign nature. Pt elected to treat with liquid nitrogen due to painful irritation . May recur or persist after treatment. Discolorat ion or scarring is possible. Telangiect benjamin of skin of face [id number] I78.1 The nature of the diagnosis was discussed. Rec f/u with [facility] for consultati on and treatment. Health Concerns Section Related Observation LastModified by Organization Detai ls LastModified Time None Recorded Concern Status LastModified by Organization Details LastModified Time None Recorded Advance Directives Directive None Recorded Payers Encounter Date Sequence Insurance Name Policy Number Policy Bateman Covered Member ID Bateman Member ID Guarantor Name 05/09/2024 1 [facility] DOS PRIOR TO 2024 (PPO) [id number] João Lorenzo [id number] Elaine Lorenzo Notes Date Note Type Note Provider Name and Address Organization Details Recorded Time 05/09/2024 text/html Specific spot t o check Location: Left side of neckGeneral duration: ~{{days weeks bernadette hs years 2 months#}}Predomina nt symptom:{{asymptom atic itching catch ing on things sensitive p ainful* other}}Christin or treatment(s):{{non e* cryo biopsy exc ision other}}Histo ry of evolution:{{stable * changing}}, pt has picked and caused it to bleed- JASON CARPENTER PA-C [address] [place], [address], [facility] 05/09/2024 12:57:47 OBGyn Episode No OBEpisode recorded.
== END 2024-08-02 23:59 | disposition home or self-care (01) ==
LOC: SC.PAIN 08:50
PROVIDERS: PCP Family Medicine; Visit Provider Nurse Practitioner Family
DX: M47.816 Spondylosis without myelopathy or radiculopathy, lumbar region (principal); M51.369 Other intervertebral disc degeneration, lumbar region without mention of lumbar back pain or lower extremity pain; F17.210 Nicotine dependence, cigarettes, uncomplicated; Z73.89 Other problems related to life management difficulty
CPT/HCPCS: 99212; G0463

== ENCOUNTER 2024-09-05 08:21 | Day surgery (SDC) | payer OTHER, SELFPAY ==
[2024-09-05 08:27] VITALS: BP 129/72; PULSE 79; RESP 16; TEMP 36.6; O2SAT 93; BMI 26.5
[2024-09-05 09:11] VITALS: BP 148/70; PULSE 92; RESP 18; O2SAT 98
[2024-09-05] MEDS: DEXAMETHASONE 10MG/ML 1ML VIAL 10 MG (09:11)
[2024-09-05] MEDS: LIDOCAINE 1% 5ML PF VIAL 10 ML (09:11)
[2024-09-05] MEDS: BUPIVACAINE 0.25% 10ML INJ 25 MG IJ (09:11)
[2024-09-05 09:13] VITALS: BP 148/70; PULSE 92; RESP 18; O2SAT 98
[2024-09-05 09:28] VITALS: BP 121/75; PULSE 79; RESP 16; O2SAT 98
--- NOTE | 2024-09-05 10:16 | P.PCN_ITS ---
Procedure Date: 09/05/24 Time: 09:20 Anesthesiologist:: Manuel Pink CRNA Complications:: None Pre-procedure Diagnosis:: Degenerative disc lumbar spine multilevels. Lumbar radiculopathy. Lumbar spondylosis. Multilevel lumbar facet arthropathy. Post-procedure Diagnosis:: Same. Indications for Procedure:: Patient is a very pleasant 49-year-old female who comes our clinic today for lumbar radiofrequency ablation at the bilateral L4-5, L5-S1 levels. Patient responded very well to medial branch blocks/facet injections at the same levels x 2. She describes low lumbar back pain that is constant, dull, aching. She rates her pain 7/10. Procedure Details:: Procedure Details: Lumbar RFA Informed consent was obtained and the risk and benefits of the procedure was explained to the patient. Patient was placed prone on the procedure table. The patient was prepped and draped in sterile fashion. C-arm fluoroscopy was used to view the lumbar spine. The skin and subcutaneous tissues were anesthetized using lidocaine. I placed 20-gauge RF needles into the facet joints of L3-L4, L4-L5 and L5-S1 bilaterally. We underwent sensory stimulation. There is good sensory stimulation at 0.8 V. We underwent motor stimulation. There is no motor s timulation at 2 V. We then anesthetized these levels with lidocaine and Depo- Medrol. I used a total of 40 mg Depo-Medrol for all 3 levels. I then burned all 3 levels of L3-L4, L4-5 and L5-S1 bilaterally for 4 minutes at 80 ?C. Patient tolerated the procedure well with no complication. Plan and Disposition:: Patient was discharged without incident.
== END 2024-09-05 09:28 | disposition home or self-care (01) ==
LOC: SC.PAINP 08:21
PROVIDERS: PCP Family Medicine; Visit Provider Nurse Anesthetist, Certified Registered
DX: M47.816 Spondylosis without myelopathy or radiculopathy, lumbar region (principal); M51.16 Intervertebral disc disorders with radiculopathy, lumbar region
CPT/HCPCS: 64635; 64636; J1100